=== PATIENT | female | born 1955 | race Caucasian/White ===

== ENCOUNTER 2020-10-28 06:30 | Day surgery (SDC) | payer BC ==
[2020-10-28] MEDS ORDERED: Ringers Lactate 1,000 ML IV ONE (07:12)
[2020-10-28] MEDS ORDERED: CLINDAMYCIN INJ 600 MG in NA CHLORIDE 0.9% 50 ML IV ONE (07:15)
[2020-10-28] MEDS ORDERED: LIDOCAINE 2% MPF 5 ML VIAL ONE (07:27)
[2020-10-28] MEDS ORDERED: MIDAZOLAM HCL 2 MG/2 ML INJ ONE (07:27)
[2020-10-28] MEDS ORDERED: propofoL 200 MG/20 ML VIAL IV ONE (07:27)
[2020-10-28] MEDS ORDERED: ONDANSETRON 4 MG/2 ML VIAL ONE (07:27)
[2020-10-28] MEDS ORDERED: FENTANYL CITR 100 MCG/2 ML ONE (07:27)
[2020-10-28] MEDS ORDERED: BACITRACIN 50000 UNIT VIAL ONE (07:31)
[2020-10-28] MEDS ORDERED: NS 0.9% VIAL 0 ML ONE (07:32)
[2020-10-28] MEDS ORDERED: BUPIVACAINE 0.5% PF 10 ML VIAL ONE (07:32)
[2020-10-28] MEDS ORDERED: TRIAMCINOLONE ACETON 40 MG/ML VIAL ONE (07:32)
[2020-10-28] MEDS ORDERED: KETOROLAC 30 MG/ML INJ ONE (08:14)
[2020-10-28] MEDS ORDERED: dexAMETHasone 10 MG/ML VIAL ONE (08:14)
[2020-10-28] MEDS ORDERED: GLYCOPYRROLATE 0.2 MG/ML SYR ONE (08:29)
[2020-10-28] MEDS ORDERED: EPHEDRINE SULF 50 MG/ML VIAL ONE (08:31)
[2020-10-28] MEDS ORDERED: dexAMETHasone 4 MG/ML VIAL ONE (08:42)
[2020-10-28 08:57] VITALS: O2SAT 97
[2020-10-28 09:58] VITALS: BP 130/60; TEMP 97
== END 2020-10-28 09:45 | disposition home health service (06) ==
LOC: OR 06:30
PROVIDERS: ATTEND Podiatrist Foot & Ankle Surgery
PROC: 0LBW0ZZ Excision of Left Foot Tendon, Open Approach (ICD-10-PCS; principal; 2020-10-28 07:30)
DX: M67.471 Ganglion, right ankle and foot (principal); M79.671 Pain in right foot; Z20.822 Contact with and (suspected) exposure to COVID-19
CPT/HCPCS: 88312; 88305; 28090; U0002; J2704; J1100 ×2; J2250; J3010; J7120; J2405; J3301

== ENCOUNTER 2023-09-17 20:11 | Emergency (ER) | payer OTHER ==
[2023-09-17 20:54] LABS: Absolute Basophils 0.1 K/uL (0-0.5); Absolute Eosinophils 0.2 K/uL (0-0.5); Absolute Lymphocytes (CBC) 4.7 K/uL (0.7-4.9); Absolute Monocytes 0.5 K/uL (0.1-1.3); Absolute Neutrophil 4.5 K/uL (1.8-8.0); Basophils % 1.2 % (0-1.3); Eosinophils % 1.7 % (0-4.4); Hematocrit 35.3 % (36.0-45.0); Hemoglobin 12.2 g/dL (12.0-15.0); Lymphocytes % 46.7 % (15.3-44.8); MCH 32.8 pg (27.0-35.0); MCHC 34.6 g/dL (32.0-36.0); MCV 94.6 fL (80-100); MPV 9.1 fL (7.6-11.3); Monocytes % 5.2 % (3.3-12.3); Neutrophils % 45.2 % (41.7-73.7); Nucleated Red Blood Cells % 0.1 % (0-0); Platelets 222 thou/uL (152-406); RBC Red Blood Cell Count 3.73 M/uL (3.86-4.86); Red Cell Distribution Width 13.1 % (12.1-15.2)
--- NOTE | 2023-09-17 21:07 | RAD REPORT ---
EXAM DESCRIPTION: CT - CTHCSPWOC - 09/17/2023 8:55 pm CLINICAL HISTORY: Trauma, head and neck injury. acute head injury COMPARISON: No comparisons TECHNIQUE: Axial 5 mm thick images of the head were obtained. Axial 2 mm thick images of the cervical spine were obtained with sagittal and coronal reconstruction images generated and reviewed. All CT scans are performed using dose optimization technique as appropriate and may include automated exposure control or mA/KV adjustment according to patient size. FINDINGS: CT HEAD WITHOUT CONTRAST: Linear sulcal hyperattenuation at the right parietal lobe (image 17, series 201) is noted and suspici ous for subarachnoid hemorrhage. No hydrocephalus.No areas of brain edema or midline shift. Age advan mj cerebral atrophy. The paranasal sinuses and mastoids are clear.The calvarium is intact. CT CERVICAL SPINE WITHOUT CONTRAST: No fracture or traumatic subluxation.No prevertebral soft tissues swelling is identified. Mild cervic al spondylosis including neural foraminal narrowing that is mild on the left at C5-6. Reversal normal cervical lordosis may be positional or secondary to spasm. IMPRESSION: 1. Small volume of subarachnoid hemorrhage identified at the right parietal lobe. Convey ed to Dr. Steinberg by Dr. Lovell at 2100 on 09/17/23. No skull fracture. 2. No acute fracture or traumatic malalignment of the cervical spine.
[2023-09-17 21:08] LABS: Anion Gap 8.9 mEq/L (5.0-15.0)
[2023-09-17 21:09] LABS: Potassium 3.9 mEq/L (3.5-5.1)
[2023-09-17] MEDS ORDERED: ONDANSETRON 4 MG/2 ML VIAL ONE (21:13)
[2023-09-17] MEDS ORDERED: MORPHINE 4 MG/ML SYR ONE (21:13)
[2023-09-17 21:51] LABS: PT Prothrombin Time 11.1 SECONDS (9.5-12.5); Protime INR 1.01
[2023-09-17 22:03] LABS: ALT/SGPT 24 U/L (13-56); AST/SGOT 18 U/L (15-37); Albumin 3.4 g/dL (3.4-5.0); Albumin/Globulin Ratio 1.2 (1.1-1.8); Alkaline Phosphatase 65 U/L (45-117); Bilirubin Total 0.3 mg/dL (0.2-1.0); Globulin 2.9 g/dL (2.3-3.5); Protein, Total 6.3 g/dL (6.4-8.2)
[2023-09-17 22:05] LABS: Bilirubin Direct < 0.1 mg/dL (0-0.2); Bilirubin Indirect, Calculated ND mg/dL (0.2-0.8)
--- NOTE | 2023-09-17 22:36 | ER ---
Nurse's Notes [facility] Name: Alanis Almaguer Age: 68 yrs Sex: Female : 1955 Arrival Date: 09/17/2023 Time: 20:11 Bed 16 Private MD: Diagnosis: Traumatic subarachnoid hemorrhage;Alcohol abuse with intoxication, uncomplicated;Acute head injury, right temporal hematoma;Right parietal subarachnoid bleed Presentation: 09/16 20:25 Chief complaint: EMS states: reports fall with bump to the right side of the head. cp4 Patient had been drinking vodka at a [employer] and fell. Patient does not remember the fall. Coronavirus screen: Client denies travel out of the [place] in the last 14 days. At this time, the client does not indicate any symptoms associated with coronavirus-19. Ebola Screen: Patient negative for fever greater than or equal to 101.5 degrees Fahrenheit, and additional compatible Ebola Virus Disease symptoms Patient denies exposure to infectious person. Patient denies travel to an Ebola-affected area in the 21 days before illness onset. No symptoms or risks identified at this time. Initial Sepsis Screen: Does the patient meet any 2 criteria? No. Patient's initial sepsis screen is negative. Does the patient have a suspected source of infection? No. Patient's initial sepsis screen is negative. Risk Assessment: Do you want to hurt yourself or someone else? Patient reports no desire to harm self or others. Onset of symptoms was September 17, 2023. 20:25 Method Of Arrival: EMS: [facility] cp4 20:25 Acuity: NOY 3 cp4 Triage Assessment: 20:28 General: Appears in no apparent distress. Behavior is calm, cooperative, appropriate cp4 for age. Pain: Denies pain. Neuro: No deficits noted. Injury Description: contusion to the right side of the head. Historical: - Allergies: 20:28 PENICILLINS; cp4 - Immunization history:: Adult Immunizations up to date. - Infectious Disease History:: Denies. CDIFF, C. Auris, ESBL, MRSA (w/in 1 year), VRE (w/in 1 year), TB, . - Social history:: Smoking status: Patient denies any tobacco usage or history of. - Family history:: not pertinent. Screenin:27 [facility] ED Fall Risk Assessment (Adult) History of falling in the last 3 months, tm6 including since admission Yes- single mechanical fall (1 pt) Confusion or Disorientation No (0 pts) Intoxicated or Sedated No (0 pts) Impaired Gait No (0 pts) Mobility Assist Device Used No (0 pt) Altered Elimination No (0 pt) Score/Fall Risk Level 0 - 2 = Low Risk Oriented to surroundings, Maintained a safe environment. Abuse screen: Denies threats or abuse. Denies injuries from another. Nutritional screening: No deficits noted. Tuberculosis screening: No symptoms or risk factors identified. Assessment: 22:27 General: Appears uncomfortable, Behavior is calm, cooperative. Pain: Complains of pain tm6 in face Quality of pain is described as aching. Neuro: Level of Consciousness is awake, alert, obeys commands, Oriented to person, place, time, situation, Reports headache. Cardiovascular: Patient's skin is warm and dry. Respiratory: Airway is patent Respiratory effort is even, unlabored, Respiratory pattern is regular, symmetrical. GI: Abdomen is flat, non-distended. : No signs and/or symptoms were reported regarding the genitourinary system. EENT: No signs and/or symptoms were reported regarding the EENT system. Derm: No signs and/or symptoms reported regarding the dermatologic system. Musculoskeletal: No signs and/or symptoms reported regarding the musculoskeletal system. 22:28 Reassessment: report called to [facility] Jack Carvalho RN. tm6 23:22 Reassessment: Patient and/or family updated on plan of care and expected duration. Pain tm6 level reassessed. Patient is alert, oriented x 3, equal unlabored respirations, skin warm/dry/pink. 23:22 Reassessment: report given to EMS. tm6 Vital Signs: 20:25 BP 130 / 60; Pulse 73; Resp 18; Temp 98; Pulse Ox 98% ; Weight 52.16 kg; Height 4 ft. cp4 10 in. ; Pain 0/10; 21:00 BP 126 / 61; Pulse 69; Resp 18; Pulse Ox 99% ; cp4 21:30 BP 121 / 62; Pulse 85; Resp 18; Pulse Ox 99% ; cp4 23:06 BP 114 / 71; Pulse 76; Resp 18; Pulse Ox 96% 1 lpm ; pm6 20:25 Body Mass Index 24.03 (52.16 kg, 147.32 cm) cp4 20:25 Pain Scale: Adult cp4 [place] Coma Score: 09/17 05:20 Eye Response: spontaneous(4). Motor Response: obeys commands(6). Verbal Response: sp4 oriented(5). Total: 15. NIH Stroke Scale Scores: 05:20 NIHSS Score: 0 sp4 ED Course: 09/16 20:15 Patient arrived in ED. rv1 20:21 Reynaldo Steinberg MD is Attending Physician. sp4 20:25 Nydia Calderon is Primary Nurse. cp4 20:28 Triage completed. cp4 20:28 Arm band placed on right wrist. Patient placed in an exam room, on a stretcher. cp4 20:44 CT Head C Spine Sent. cp4 20:44 Basic Metabolic Panel Sent. cp4 20:44 CBC with Diff Sent. cp4 20:47 CT Head C Spine In Process Unspecified. EDMS 21:30 Initial lab(s) drawn, by ca, sent to lab. T\T\S collected, blood band applied to patient. cp4 Inserted saline lock: 20 gauge in left antecubital area, using aseptic technique. Blood collected. 22:27 Patient has correct armband on for positive identification. Placed in gown. Bed in low tm6 position. Call light in reach. Side rails up X2. Provided Education on: plan of care. Client placed on continuous cardiac and pulse oximetry monitoring. NIBP monitoring applied. noc technician on. Pulse ox on. NIBP on. Door closed. Noise minimized. 23:22 No provider procedures requiring assistance completed. Patient transferred, IV remains tm6 in place. Administered Medications: 21:15 Drug: Ondansetron IVP 4 mg IVP once; over 2 minutes Route: IVP; Site: right antecubital;cp4 21:15 Drug: morphine IVP or IV 4 mg IVP once over 4 mins Route: IVP; Infused Over: 4 mins; cp4 Site: right antecubital; 22:35 Not Given (Physician Discretion): [id number] mg IVP once sp4 23:22 Drug: morphine IVP or IV 2 mg IVP once over 4 mins Route: IVP; Infused Over: 4 mins; tm6 Site: left antecubital; 23:22 Drug: metoCLOPramide IVP 10 mg IVP once; over 1 to 2 minutes Route: IVP; Site: left 6 antecubital; 23:22 Drug: diphenhydrAMINE IVP 25 mg IVP once Route: IVP; Site: left antecubital; tm6 23:22 Drug: Thiamine IV 100 mg IV at bolus once Route: IV; Rate: bolus; Site: left 6 antecubital; Medication: 22:27 VIS not applicable for this client. 6 Outcome: 22:35 ER care complete, transfer ordered by MD. lora 23:23 Transferred by ground EMS to [facility], tm6 23:23 Condition: stable 23:23 Instructed on the need for transfer, 23:23 Patient left the ED. 6 NIH Stroke Scale - NIH Stroke Score Date: 09/18/2023 Time: 05:20 Total Score = 0 10. Dysarthria (speech clarity - read or repeat words) - 0(Normal) 11. Extinction and Inattention (visual/tactile/auditory/spatial/personal) - 0(No abnormality) 1a. Level of Consciousness (LOC) - 0(Alert) 1b. Level of Consciousness (LOC) (Month \T\ Age) - 0(Both) 1c. LOC Commands (Open \T\ Closes Eyes/Tuber Machine Operator Helper) - 0(Both) 2. Best Gaze (Lateral Gaze Paresis) - 0(Normal) 3. Visual Field Loss - 0(No visual loss) 4. Facial Palsy - 0(Normal) 5a. Left Arm: Motor (10-second hold) - 0(No drift) 5b. Right Arm: Motor (10-second hold) - 0(No drift) 6a. Left Leg: Motor (5-second hold - always test supine) - 0(No drift) 6b. Right Leg: Motor (5-second hold - always test supine) - 0(No drift) 7. Limb Ataxia (finger/nose \T\ heel/ferguson - test with eyes open) - 0(Absent) 8. Sensory Loss (pinprick arms/legs/face) - 0(Normal) 9. Best Language: Aphasia (description/naming/reading) - 0(No aphasia) Initials: sp4 Signatures: Dispatcher [employer] EDNakita Garcia rv1 Reynaldo Steinberg MD MD sp4 Nydia Calderon cp4 Tolu Watson, EVERETT RN tm6 Janet Green pm6 Corrections: (The following items were deleted from the chart) 20:29 20:28 Allergies: No Known Allergies; cp4 cp4
--- NOTE | 2023-09-17 22:36 | EDPHYS ---
Physician Documentation [facility] Name: Alanis Almaguer Age: 68 yrs Sex: Female : 1955 Arrival Date: 09/17/2023 Time: 20:11 Bed 16 Private MD: ED Physician Reynaldo Steinberg HPI: 09/16 20:21 This 68 yrs old Female presents to ER via Unassigned with complaints of sp4 intoxication. 09/17 05:20 Very pleasant 70-year-old female presents with acute intoxication acute fall at home sp4 and injury to the right temporal scalp with hematoma. . Historical: - Allergies: 09/16 20:28 PENICILLINS; cp4 - Immunization history:: Adult Immunizations up to date. - Infectious Disease History:: Denies. CDIFF, C. Auris, ESBL, MRSA (w/in 1 year), VRE (w/in 1 year), TB, . - Social history:: Smoking status: Patient denies any tobacco usage or history of. - Family history:: not pertinent. ROS: 09/17 05:20 Constitutional: Negative for fever, chills, and weight loss, positive for head injury sp4 positive for right temporal hematoma All other systems are negative, Exam: 05:20 Constitutional: This is a well developed, well nourished patient who is awake, alert, sp4 and in no acute distress. Head/Face: Normocephalic, positive small right temporal hematoma Eyes: Pupils equal round and reactive to light, extra-ocular motions intact. Lids and lashes normal. Conjunctiva and sclera are not injected. Cornea within normal limits. Periorbital areas with no swelling, redness, or edema. ENT: Nares patent. No nasal discharge, no septal abnormalities noted. Tympanic membranes are normal and external auditory canals are clear. Oropharynx with no redness, swelling, or masses, exudates, or evidence of obstruction, uvula midline. Mucous membranes moist. Neck: Trachea midline, no thyromegaly or masses palpated, and no cervical lymphadenopathy. Supple, full range of motion without nuchal rigidity, or vertebral point tenderness. Chest/axilla: Normal chest wall appearance and motion. Nontender with no deformity. No lesions are appreciated. Cardiovascular: Regular rate and rhythm with a normal S1 and S2. No gallops, murmurs, or rubs. Normal PMI, no JVD. No pulse deficits. Respiratory: Lungs have equal breath sounds bilaterally, clear to auscultation and percussion. No rales, rhonchi or wheezes noted. No increased work of breathing, no retractions or nasal flaring. Abdomen/GI: Soft, with normal bowel sounds. No distension or tympany. No guarding or rebound. No evidence of tenderness throughout. Back: No spinal tenderness. No costovertebral tenderness. Skin: Warm, dry with normal turgor. Normal color with no rashes, no lesions, and no evidence of cellulitis. MS/ Extremity: Pulses equal, no cyanosis. Neurovascular intact. Full, normal range of motion. Neuro: Awake and alert, GCS 15, oriented to person, place, time, and situation. Cranial nerves II-XII grossly intact. Motor strength 5/5 in all extremities. Sensory grossly intact. Psych: Awake, alert, with orientation to person, place and time. Behavior, mood, and affect are within normal limits Vital Signs: 09/16 20:25 BP 130 / 60; Pulse 73; Resp 18; Temp 98; Pulse Ox 98% ; Weight 52.16 kg; Height 4 ft. cp4 10 in. ; Pain 0/10; 21:00 BP 126 / 61; Pulse 69; Resp 18; Pulse Ox 99% ; cp4 21:30 BP 121 / 62; Pulse 85; Resp 18; Pulse Ox 99% ; cp4 23:06 BP 114 / 71; Pulse 76; Resp 18; Pulse Ox 96% 1 lpm ; pm6 20:25 Body Mass Index 24.03 (52.16 kg, 147.32 cm) cp4 20:25 Pain Scale: Adult cp4 NIH Stroke Scale Scores: 09/17 05:20 NIHSS Score: 0 sp4 [place] Coma Score: 05:20 Eye Response: spontaneous(4). Motor Response: obeys commands(6). Verbal Response: sp4 oriented(5). Total: 15. MDM: 09/16 20:22 Patient medically screened. sp4 21:58 ED course: EXAM DESCRIPTION: CT - CTHCSPWOC - 09/17/2023 8:55 pm CLINICAL HISTORY: sp4 Trauma, head and neck injury. acute head injury COMPARISON: No comparisons TECHNIQUE: Axial 5 mm thick images of the head were obtained. Axial 2 mm thick images of the cervical spine were obtained with sagittal and coronal reconstruction images generated and reviewed. All CT scans are performed using dose optimization technique as appropriate and may include automated exposure control or mA/KV adjustment according to patient size. FINDINGS: CT HEAD WITHOUT CONTRAST: Linear sulcal hyperattenuation at the right parietal lobe (image 17, series 201) is noted and suspicious for subarachnoid hemorrhage. No hydrocephalus.No areas of brain edema or midline shift. Age advanced cerebral atrophy. The paranasal sinuses and mastoids are clear.The calvarium is intact. CT CERVICAL SPINE WITHOUT CONTRAST: No fracture or traumatic subluxation.No prevertebral soft tissues swelling is identified. Mild cervical spondylosis including neural foraminal narrowing that is mild on the left at C5-6. Reversal normal cervical lordosis may be positional or secondary to spasm. IMPRESSION: 1. Small volume of subarachnoid hemorrhage identified at the right parietal lobe. Conveyed to Dr. Steinberg by Dr. Lovell at 2100 on 09/17/23. No skull fracture. 2. No acute fracture or traumatic malalignment of the cervical spine. . 22:33 Differential Diagnosis altered mental status, sepsis, flu, Head injury . Data reviewed: sp4 vital signs, nurses notes, old medical records, lab test result(s), radiologic studies, CT scan. ED course: Patient was accepted by neurosurgeon at [facility] for evaluation.. 09/17 05:20 Consideration of Admission/Observation Escalation of care including sp4 admission/observation considered. Management of patient was discussed with the following: Business Insurance Agent: Neurosurgery at [facility]. ED course: Patient was accepted in transfer to [facility]. 09/16 20:29 Order name: Basic Metabolic Panel; Complete Time: 21:12 sp4 09/16 20:29 Order name: CBC with Diff; Complete Time: 21:12 sp4 09/16 20:29 Order name: Alcohol Level; Complete Time: 21:12 sp4 09/16 21:12 Order name: PT-INR; Complete Time: 21:57 sp4 09/16 21:12 Order name: Type And Screen sp4 09/16 21:12 Order name: LFT's; Complete Time: 22:32 sp4 09/16 20:29 Order name: CT Head C Spine; Complete Time: 21:12 sp4 09/16 20:29 Order name: Labs collected and sent; Complete Time: 20:44 sp4 09/16 22:32 Order name: NPO; Complete Time: 23:01 sp4 Administered Medications: 09/16 21:15 Drug: Ondansetron IVP 4 mg IVP once; over 2 minutes Route: IVP; Site: right antecubital;cp4 21:15 Drug: morphine IVP or IV 4 mg IVP once over 4 mins Route: IVP; Infused Over: 4 mins; cp4 Site: right antecubital; 22:35 Not Given (Physician Discretion): [id number] mg IVP once sp4 23:22 Drug: morphine IVP or IV 2 mg IVP once over 4 mins Route: IVP; Infused Over: 4 mins; tm6 Site: left antecubital; 23:22 Drug: metoCLOPramide IVP 10 mg IVP once; over 1 to 2 minutes Route: IVP; Site: left tm6 antecubital; 23:22 Drug: diphenhydrAMINE IVP 25 mg IVP once Route: IVP; Site: left antecubital; tm6 23:22 Drug: Thiamine IV 100 mg IV at bolus once Route: IV; Rate: bolus; Site: left tm6 antecubital; Disposition Summary: 09/17/23 22:35 Transfer Ordered Notes: Transfer Location: [facility] sp4 Reason: Higher level of care sp4 Condition: Stable sp4 Problem: new sp4 Symptoms: have improved sp4 Accepting Physician: THONY Neurosurgeon (09/17/23 23:23) tm6 Diagnosis - Traumatic subarachnoid hemorrhage sp4 - Alcohol abuse with intoxication, uncomplicated sp4 - Acute head injury, right temporal hematoma sp4 - Right parietal subarachnoid bleed sp4 Discharge Instructions: - Discharge Summary Sheet tm6 Forms: - Medication Reconciliation Form sp4 - SBAR form tm6 NIH Stroke Scale - NIH Stroke Score Date: 09/18/2023 Time: 05:20 Total Score = 0 10. Dysarthria (speech clarity - read or repeat words) - 0(Normal) 11. Extinction and Inattention (visual/tactile/auditory/spatial/personal) - 0(No abnormality) 1a. Level of Consciousness (LOC) - 0(Alert) 1b. Level of Consciousness (LOC) (Month \T\ Age) - 0(Both) 1c. LOC Commands (Open \T\ Closes Eyes/Cyber Security Administrator) - 0(Both) 2. Best Gaze (Lateral Gaze Paresis) - 0(Normal) 3. Visual Field Loss - 0(No visual loss) 4. Facial Palsy - 0(Normal) 5a. Left Arm: Motor (10-second hold) - 0(No drift) 5b. Right Arm: Motor (10-second hold) - 0(No drift) 6a. Left Leg: Motor (5-second hold - always test supine) - 0(No drift) 6b. Right Leg: Motor (5-second hold - always test supine) - 0(No drift) 7. Limb Ataxia (finger/nose \T\ heel/ferguson - test with eyes open) - 0(Absent) 8. Sensory Loss (pinprick arms/legs/face) - 0(Normal) 9. Best Language: Aphasia (description/naming/reading) - 0(No aphasia) Initials: sp4 Signatures: Dispatcher [employer] EDReynaldo Acosta MD MD sp4 Nydia Calderon cp Tolu Watson RN RN tm6 Corrections: (The following items were deleted from the chart) 20:29 20:28 Allergies: No Known Allergies; Yamileth cp4 20:30 20:30 ETHANOL+C.LAB.BRZ ordered. EDMS EDMS 23:23 22:35 Neurosurgeon sp4 tm6
[2023-09-17] MEDS ORDERED: THIAMINE 200 MG/2 ML INJ ONE (22:38)
[2023-09-17] MEDS ORDERED: MORPHINE 2 MG/ML SYR ONE (22:39)
[2023-09-17] MEDS ORDERED: KETOROLAC 30 MG/ML INJ ONE (22:39)
[2023-09-17] MEDS ORDERED: METOCLOPRAMIDE 10 MG/2mL INJ ONE (22:39)
[2023-09-17] MEDS ORDERED: DIPHENHYDRAMINE 50 MG/ML VIAL ONE (22:39)
[2023-09-17 23:58] VITALS: BP 114/71; TEMP 98; O2SAT 96
== END 2023-09-17 23:23 | disposition short-term general hospital (02) ==
LOC: ER 20:11
DX: S06.6XAA Traumatic subarachnoid hemorrhage with loss of consciousness status unknown, initial encounter (principal); F10.129 Alcohol abuse with intoxication, unspecified; S00.83XA Contusion of other part of head, initial encounter; W18.30XA Fall on same level, unspecified, initial encounter; Y92.009 Unspecified place in unspecified non-institutional (private) residence as the place of occurrence of the external cause; Z88.0 Allergy status to penicillin
CPT/HCPCS: 85025; 80048; 36415; 86900; 86850; 85610; 86901; 80076; 70450; 72125; 99285; 82077; J3411; J2765; J1200; J2270; J2405